=== PATIENT | male | born 1970 | race Caucasian/White ===

== ENCOUNTER 2025-09-01 09:32 | Outpatient (CLI) | payer OTHER, SELFPAY | END 2025-09-01 09:33 | disposition home or self-care (01) | LOC: CSHSLEEP 09:32 | PROVIDERS: ATTEND Nurse Practitioner Family | DX: G47.33 Obstructive sleep apnea (adult) (pediatric) (principal); R09.89 Other specified symptoms and signs involving the circulatory and respiratory systems; K21.9 Gastro-esophageal reflux disease without esophagitis; R06.83 Snoring; I10 Essential (primary) hypertension | CPT/HCPCS: 95811 ==